=== PATIENT | male | born 1990 | race African-American/Black ===

== ENCOUNTER 2017-02-07 20:46 | Emergency (ER) | payer SELFPAY ==
[~2017-02-07] VITALS: Ht 190.5 cm; Wt 81.6 kg
[2017-02-07 21:17] VITALS: BP 139/60
--- NOTE | 2017-02-07 21:48 | PHYS DOC ---
Past Medical History Past Medical History: No Pertinent History Past Surgical History: No Surgical History Alcohol Use: Occasionally Drug Use: Marijuana Adult General Chief Complaint Chief Complaint: INSECT BITE HPI HPI Patient is a 26 year old male who presents with insect bite to the left hip that he noted three days ago. He states he had one on the right hip that he poked yesterday. Patient denies any fever. He is writhing in pain moving up and down in the chair. Review of Systems Review of Systems Constitutional: Denies fever or chills [] Musculoskeletal: Denies back pain or joint pain [] Integument: insect bite to the left hip and right hip Neurologic: Denies headache, focal weakness or sensory changes [] Current Medications Current Medications Current Medications Medications (Trade) Dose Ordered Sig/Debra Start Time Stop Time Status Last Admin Dose Admin Acetaminophen/ Hydrocodone Bitart (Lortab 5/325) 1 tab 1X ONCE 02/07/17 22:00 02/07/17 22:01 DC 02/07/17 22:00 1 TAB Allergies Allergies Allergies Coded Allergies Type Severity Reaction Last Updated Verified No Known Drug Allergies 09/13/13 No Physical Exam Physical Exam Constitutional: Well developed, well nourished, no acute distress, non-toxic appearance patient is writhing in pain moving up and down in the chair Skin: Exam is difficult, patient will not let me touch the affected areas. Left hip with an area of induration approximately 2 x 2 centimeters. The area is firm , has slight erythema, very tender to touch but not fluctuant. Right hip has 2 tiny indurated area approximately 0.5 x 0.5 cm each with slight erythema firmness and tenderness to touch. Back: No tenderness, no CVA tenderness. [] Extremities: No tenderness, no cyanosis, no clubbing, ROM intact, no edema. [] Neurologic: Alert and oriented X 3, normal motor function, normal sensory function, no focal deficits noted. [] Psychologic: Affect normal, judgement normal, mood normal. [] Current Patient Data Vital Signs Vital Signs Date Time Temp Pulse Resp B/P (MAP) Pulse Ox O2 Delivery O2 Flow Rate FiO2 02/07/17 22:00 18 100 Room Air 02/07/17 21:17 98.9 94 98.9 EKG EKG [] Radiology/Procedures Radiology/Procedures [] Course & Med Decision Making Course & Med Decision Making Pertinent Labs and Imaging studies reviewed. (See chart for details) Patient has what looks like an insect bite to the left hip and right hip. Left hip looks like it's formed an early abscess. The area is very firm with no fluctuance though exam was difficult because patient would not let me touch the area. Recommended warm compresses to the area. Tetanus is up-to-date. Discharged with Bactrim and Bactroban ointment. Discharged with Ultram for pain. Follow-up with general surgeon provided in 1-2 weeks. Dragon Disclaimer Dragon Disclaimer This electronic medical record was generated, in whole or in part, using a voice recognition dictation system. Departure Departure Impression: Primary Impression: Abscess Additional Impression: Insect bite Disposition: HOME, SELF-CARE Condition: STABLE Referrals: NO PCP (PCP) MAXINE SCHULTZ MD follow up in one week Patient Instructions: Abscess, Insect Bite, [id number] Additional Instructions: You were seen with abscess of the left and right hip from what appears to be insect bites. Take the prescribed medications as ordered. Follow-up with the provided general surgeon in one to 2 weeks. Apply warm compresses to the area. Ensure you complete your oral antibiotics. Scripts Mupirocin Calcium (BACTROBAN CREAM) 15 Gm Cream..g. 1 ROSSANA TP TID, #30 GM Prov: MERLIN ALDANA APRN 02/07/17 Sulfamethoxazole/Trimethoprim (BACTRIM DS TABLET) 1 Each Tablet 1 TAB PO BID, #20 TAB Prov: MERLIN ALDANA APRN 02/07/17 Tramadol Hcl (ULTRAM) 50 Mg Tablet 1 TAB PO Q6HRS, #30 TAB Prov: MERLIN ALDANA APRN 02/07/17 Prednisone (PREDNISONE) 50 Mg Tablet 1 TAB PO DAILY, #5 TAB Prov: MERLIN ALDANA APRN 02/07/17 Problem Qualifiers Additional Impression: Insect bite Encounter type: initial encounter Qualified Codes: W57.XXXA - Bitten or stung by nonvenomous insect and other nonvenomous arthropods, initial encounter MERLIN ALDANA APRN Feb 07, 2017 21:48
[2017-02-07] MEDS ORDERED: TRAM-48 PO (21:54)
[2017-02-07] MEDS ORDERED: MUPI15CR TP (21:54)
[2017-02-07] MEDS ORDERED: SULF1TAB24 PO (21:54)
[2017-02-07] MEDS ORDERED: PRED50TA PO (21:54)
[2017-02-07] MEDS ORDERED: HYDROcodone/APAP 5/325MG 1 TAB TABLET PO ONE (22:00)
== END 2017-02-07 22:02 | disposition home or self-care (01) ==
LOC: ER 20:46
DX: L02.415 Cutaneous abscess of right lower limb (principal); L02.416 Cutaneous abscess of left lower limb; S70.262A Insect bite (nonvenomous), left hip, initial encounter; S70.261A Insect bite (nonvenomous), right hip, initial encounter; F12.10 Cannabis abuse, uncomplicated; W57.XXXA Bitten or stung by nonvenomous insect and other nonvenomous arthropods, initial encounter; Y93.89 Activity, other specified; Y92.89 Other specified places as the place of occurrence of the external cause; Y99.8 Other external cause status
CPT/HCPCS: 99283

== ENCOUNTER 2017-02-12 10:55 | Emergency (ER) | payer SELFPAY ==
[~2017-02-12] VITALS: Ht 160 cm; Wt 73.0 kg
[~2017-02-12 10:55] MED LIST: MUPI15CR TP; PRED50TA PO; SULF1TAB24 PO; TRAM-48 PO
[2017-02-12 11:05] VITALS: BP 143/78
[2017-02-12] MEDS ORDERED: LIDOCAINE 1%/EPI 1:100,000 20 ML VIAL. INJ ONE (12:00)
[2017-02-12] MEDS ORDERED: HYDR-2762 PO (14:28)
[2017-02-12] MEDS ORDERED: CLIN150C14 PO (14:28)
--- NOTE | 2017-02-12 14:28 | PHYS DOC ---
Past Medical History Past Medical History: No Pertinent History Past Surgical History: No Surgical History Alcohol Use: Occasionally Drug Use: Marijuana Adult General Chief Complaint Chief Complaint: ABSCESS HPI HPI Patient is a 26 year old male who presents with abscess on the left and right hips that he has had for the last 7 days. Patient was seen in the ED by me on February 07, 2017 but the abscesses were not ready to be drained. He was discharged with Bactrim. The abscesses are now fluctuant and very ready to drain. Patient denies any fever. Review of Systems Review of Systems Constitutional: Denies fever or chills [] Musculoskeletal: Denies back pain or joint pain [] Integument: abscess on the left and right hips Neurologic: Denies headache, focal weakness or sensory changes [] Current Medications Current Medications Current Medications Medications (Trade) Dose Ordered Sig/Debra Start Time Stop Time Status Last Admin Dose Admin Clindamycin HCl (Cleocin) 450 mg 1X ONCE 02/12/17 14:30 02/12/17 14:31 UNV Ketorolac Tromethamine (Toradol Im) 60 mg 1X ONCE 02/12/17 14:30 02/12/17 14:31 UNV Lidocaine/ Epinephrine (Xylocaine 1%-Epi 1:100,000) 20 ml 1X ONCE 02/12/17 12:00 02/12/17 12:01 DC 02/12/17 11:59 20 ML Allergies Allergies Allergies Coded Allergies Type Severity Reaction Last Updated Verified No Known Drug Allergies 09/13/13 No Physical Exam Physical Exam Constitutional: Well developed, well nourished, no acute distress, non-toxic appearance. [][] Skin: Left proximal lateral hip with an area of induration approximately 8 x 4 cm. The area is very fluctuant warm to touch and has slight erythema. Right hip with an area of induration approximately 3 x 3 cm. The area is very warm to touch fluctuant and has slight erythema. Back: No tenderness, no CVA tenderness. [] Extremities: No tenderness, no cyanosis, no clubbing, ROM intact, no edema. [] Neurologic: Alert and oriented X 3, normal motor function, normal sensory function, no focal deficits noted. [] Psychologic: Affect normal, judgement normal, mood normal. [] Current Patient Data Vital Signs Vital Signs Date Time Temp Pulse Resp B/P (MAP) Pulse Ox O2 Delivery O2 Flow Rate FiO2 9/9/17 11:05 98.6 86 16 97 Room Air 98.6 EKG EKG [] Radiology/Procedures Radiology/Procedures Indication: abscess on the left and right hips Procedure: The patient was positioned appropriately. Local anesthesia was 1% of lidocaine with epinephrine. An incision was then made over the apex of the lesions and moderate amount of yellow purulent bloody material was expressed. The drainage cavity was irrigated and packed with sterile gauze. The patients tetanus status updated as needed. The patient tolerated the procedure well. Complications: none.[] Course & Med Decision Making Course & Med Decision Making Pertinent Labs and Imaging studies reviewed. (See chart for details) Patient is back in the ED with bilateral hip abscesses and cellulitis that are ready to drained. He was seen in the ED by me on February 07, 2017 but none of his abscesses were ready to be drained. I did I&D on both abscesses today and packed them. He is to return to the ED in 2 days for wound check. I did switch him from Bactrim to clindamycin. He has no fever. He is not tachycardic. He was discharged with pain medications. His tetanus is up-to-date. Dragon Disclaimer Dragon Disclaimer This electronic medical record was generated, in whole or in part, using a voice recognition dictation system. Departure Departure Impression: Primary Impression: Cellulitis and abscess of right lower extremity Additional Impression: Cellulitis and abscess of left lower extremity Disposition: HOME, SELF-CARE Condition: STABLE Referrals: NO PCP (PCP) follow up with the Ed in 2 days for wound check Patient Instructions: Abscess, Care After, Cellulitis Additional Instructions: You were seen with abscesses with cellulitis on bilateral hips that were opened up, drained and packed in the Ed. You need to return to the ED in 2 days for wound check and packing removal. Return to the emergency room at any point you have a fever or wound condition worsens Scripts Hydrocodone Bit/Acetaminophen (HYDROCODONE-APAP 7.5-325 ) 1 Each Tablet 1 TAB PO PRN Q6HRS Y for PAIN, #30 TAB 0 Refills Prov: MERLIN ALDANA APRN 02/12/17 Clindamycin Hcl (CLINDAMYCIN HCL) 150 Mg Capsule 1 CAP PO TID, #90 CAP Prov: MERLIN ALDANA APRN 02/12/17 Problem Qualifiers MERLIN ALDANA APRN Feb 12, 2017 14:28
[2017-02-12] MEDS ORDERED: KETOROLAC 60 MG/2 ML INJ. IM ONE (14:30)
[2017-02-12] MEDS ORDERED: CLINDAMYCIN HCL 150 MG CAPSULE. PO ONE (14:30)
== END 2017-02-12 14:44 | disposition home or self-care (01) ==
LOC: ER 10:55
DX: L03.116 Cellulitis of left lower limb (principal); L03.115 Cellulitis of right lower limb
CPT/HCPCS: 10061; 96372; 99284; J1885; J3490; 10060; 99283-25

== ENCOUNTER 2017-02-14 05:32 | Emergency (ER) | payer OTHER ==
[~2017-02-14] VITALS: Ht 190.5 cm; Wt 73.0 kg
[~2017-02-14 05:32] MED LIST changes: +CLIN150C14 PO; +HYDR-2762 PO
--- NOTE | 2017-02-14 05:40 | PHYS DOC ---
Past Medical History Past Medical History: No Pertinent History Past Surgical History: No Surgical History Alcohol Use: Occasionally Drug Use: Marijuana Adult General Chief Complaint Chief Complaint: WOUND RECHECK/SUTURE REMOVAL HPI HPI Patient is a 26 year old -[place] male who presents with a wound check. He states he had these back to days ago but hasn't been taking his antibiotics as he lost the prescription. He denies fevers chills nausea vomiting. He states the wounds feel a lot of pressure. Review of Systems Review of Systems Constitutional: Denies fever or chills [] Eyes: Denies change in visual acuity, redness, or eye pain [] HENT: Denies nasal congestion or sore throat [] Respiratory: Denies cough or shortness of breath [] Cardiovascular: No additional information not addressed in HPI [] GI: Denies abdominal pain, nausea, vomiting, bloody stools or diarrhea [] : Denies dysuria or hematuria [] Musculoskeletal: Denies back pain or joint pain [] Integument: Denies rash, positive for skin lesions [] Neurologic: Denies headache, focal weakness or sensory changes [] Endocrine: Denies polyuria or polydipsia [] Current Medications Current Medications Current Medications Medications (Trade) Dose Ordered Sig/Debra Start Time Stop Time Status Last Admin Dose Admin Clindamycin HCl (Cleocin) 300 mg 1X ONCE 02/14/17 06:00 02/14/17 06:01 UNV Lidocaine/Sodium Bicarbonate (Buffered Lidocaine 1%) 20 ml 1X ONCE 02/14/17 05:45 02/14/17 05:46 DC Allergies Allergies Allergies Coded Allergies Type Severity Reaction Last Updated Verified No Known Drug Allergies 09/13/13 No Physical Exam Physical Exam Constitutional: Well developed, well nourished, no acute distress, non-toxic appearance. [] HENT: Normocephalic, atraumatic, bilateral external ears normal, oropharynx moist, no oral exudates, nose normal. [] Eyes: PERRLA, EOMI, conjunctiva normal, no discharge. [] Neck: Normal range of motion, no tenderness, supple, no stridor. [] Cardiovascular:Heart rate regular rhythm, no murmur [] Lungs & Thorax: Bilateral breath sounds clear to auscultation [] Abdomen: Bowel sounds normal, soft, no tenderness, no masses, no pulsatile masses. [] Skin: Warm, dry, erythema and bilateral hips that have been opened and packed, left hip is 4 x 2 cm with purulent discharge him a right hip 1 x 2 cm with purulent discharge was also packed Back: No tenderness, no CVA tenderness. [] Extremities: No tenderness, no cyanosis, no clubbing, ROM intact, no edema. [] Neurologic: Alert and oriented X 3, normal motor function, normal sensory function, no focal deficits noted. [] Psychologic: Affect normal, judgement normal, mood normal. [] Current Patient Data Vital Signs Vital Signs Date Time Temp Pulse Resp B/P (MAP) Pulse Ox O2 Delivery O2 Flow Rate FiO2 02/14/17 05:43 98.2 68 16 127/76 (93) 100 98.2 EKG EKG [] Radiology/Procedures Radiology/Procedures [] Impressions: Bilateral thigh abscesses Course & Med Decision Making Course & Med Decision Making Pertinent Labs and Imaging studies reviewed. (See chart for details) He lost his prescription and didn't fill it. His tetanus is up-to-date. The wounds are still firm and erythematous therefore I re-I&D the wounds. They are repacked and again was first dose of clindamycin 300 mg every 6 for 10 days. I called in the prescription to [address] so that he could not lose this prescription. He is instructed to take all medicines as directed and follow up in 2 days for wound check. Dragon Disclaimer Dragon Disclaimer This electronic medical record was generated, in whole or in part, using a voice recognition dictation system. Departure Departure Impression: Primary Impression: Abscess Disposition: 01 HOME, SELF-CARE Condition: STABLE Referrals: NO PCP (PCP) Patient Instructions: Incision and Drainage, Care After Additional Instructions: You have abscesses on both thighs that were drained 2 days ago and because you were not taking your antibiotics that you instructed to take. You must take your antibiotics or these will continue to get larger and will need to be drained again. Return to the ER in 2 more days to have these looked at to see how they are doing. If the drainage becomes a lot you might have to change her dressing. Be careful not to pull out the packing. If the car pulled out that's okay to come back in the ER in 2 days. I've cultured a prescription to [facility] at [address] You need to pick this up by noon today and continue taking her antibiotics as directed. If you develop high fevers, uncontrolled nausea vomiting, increasing pain or other concerns return back to ER sooner. Scripts Clindamycin Hcl (CLINDAMYCIN HCL) 300 Mg Capsule 300 MG PO QID for 10 Days, #40 CAP Prov: MARY ORTEGA MD 02/14/17 Incision and Drainage Indication: abscess Procedure: The patient was positioned appropriately. Local anesthesia was buffered lidocaine. An incision was already made over the apex of the lesion and dissection was performed into another pocket of fluid bilaterally, purulent material was expressed. The drainage cavity was packed with sterile gauze. The patients tetanus status updated as needed. The patient tolerated the procedure well. Complications: none. MARY ORTEGA MD Feb 14, 2017 05:40
[2017-02-14 05:43] VITALS: BP 127/76
[2017-02-14] MEDS ORDERED: LIDOCAINE 1% / SOD BICARB 8.4% 20 ML VIAL. IJ ONE (05:45)
[2017-02-14] MEDS ORDERED: CLINDAMYCIN HCL 150 MG CAPSULE. PO ONE ×2 (06:00→06:15)
[2017-02-14] MEDS ORDERED: CLIN300C8 PO (06:12)
== END 2017-02-14 06:20 | disposition home or self-care (01) ==
LOC: ER 05:32
DX: L02.416 Cutaneous abscess of left lower limb (principal); L02.415 Cutaneous abscess of right lower limb
CPT/HCPCS: 10060; 10061; 99283-25; 99284-25

== ENCOUNTER 2017-02-16 15:07 | Emergency (ER) | payer OTHER ==
[~2017-02-16] VITALS: Ht 190.5 cm; Wt 73.0 kg
[~2017-02-16 15:07] MED LIST changes: +CLIN300C8 PO
[2017-02-16 15:26] VITALS: BP 163/62
--- NOTE | 2017-02-16 16:01 | PHYS DOC ---
Past Medical History Past Medical History: No Pertinent History Past Surgical History: No Surgical History Alcohol Use: Occasionally Drug Use: Marijuana Adult General Chief Complaint Chief Complaint: WOUND RECHECK/SUTURE REMOVAL [facility] Patient is a 26 year old medical presents for wound check for an abscess to bilateral hips that was drained and repacked 2 days ago. Patient states he is taking his antibiotics. Denies any fever. Review of Systems Review of Systems Constitutional: Denies fever or chills [] Eyes: Denies change in visual acuity, redness, or eye pain [] HENT: Denies nasal congestion or sore throat [] Respiratory: Denies cough or shortness of breath [] Cardiovascular: No additional information not addressed in [facility] [] GI: Denies abdominal pain, nausea, vomiting, bloody stools or diarrhea [] : Denies dysuria or hematuria [] Musculoskeletal: Denies back pain or joint pain [] Integument: wound check for an abscess to bilateral hips Neurologic: Denies headache, focal weakness or sensory changes [] Allergies Allergies Allergies Coded Allergies Type Severity Reaction Last Updated Verified No Known Drug Allergies 09/13/13 No Physical Exam Physical Exam Constitutional: Well developed, well nourished, no acute distress, non-toxic appearance. [] Skin: Bilateral hips with 2 open abscesses packed with dressing the wounds have improved from the last time I saw patient. There is moderate drainage on the packing material with no erythema to the wounds. Back: No tenderness, no CVA tenderness. [] Extremities: No tenderness, no cyanosis, no clubbing, ROM intact, no edema. [] Neurologic: Alert and oriented X 3, normal motor function, normal sensory function, no focal deficits noted. [] Psychologic: Affect normal, judgement normal, mood normal. [] Current Patient Data Vital Signs Vital Signs Date Time Temp Pulse Resp B/P (MAP) Pulse Ox O2 Delivery O2 Flow Rate FiO2 02/16/17 15:26 98.9 81 20 95 Room Air 98.9 EKG EKG [] Radiology/Procedures Radiology/Procedures [] Course & Med Decision Making Course & Med Decision Making Pertinent Labs and Imaging studies reviewed. (See chart for details) Patient is in the ED for wound check for bilateral hip abscesses. Each of the abscess were read drained and repacked 2 days ago. There have improved tremendously, his tetanus is up-to-date and he is taking antibiotics. Packing material was removed, wounds were cleaned and repacked. Patient is to return to the ED in 2 days for wound check. Dragon Disclaimer Dragon Disclaimer This electronic medical record was generated, in whole or in part, using a voice recognition dictation system. Departure Departure Impression: Primary Impression: Wound check, abscess Disposition: HOME, SELF-CARE Condition: STABLE Referrals: NO PCP (PCP) follow up with the Ed in 2 days for wound check and packing removal Patient Instructions: Abscess, Care After Additional Instructions: Your abscesses were repacked today. Follow-up with the emergency room in 2 days for wound check. MERLIN ALDANA APRN Feb 16, 2017 16:01
== END 2017-02-16 16:10 | disposition home or self-care (01) ==
LOC: ER 15:07
DX: Z48.01 Encounter for change or removal of surgical wound dressing (principal); L02.416 Cutaneous abscess of left lower limb; L02.415 Cutaneous abscess of right lower limb
CPT/HCPCS: 99283

== ENCOUNTER 2017-02-19 12:20 | Emergency (ER) | payer OTHER ==
[~2017-02-19] VITALS: Ht 190.5 cm; Wt 73.0 kg
[2017-02-19 13:25] VITALS: BP 115/64
--- NOTE | 2017-02-19 13:47 | PHYS DOC ---
Past Medical History Past Medical History: No Pertinent History Past Surgical History: No Surgical History Alcohol Use: Occasionally Drug Use: Marijuana Adult General Chief Complaint Chief Complaint: WOUND CHECK [facility] Patient is a 26 year old male who presents with a wound to his left hip that requires repacking. The original abscess was drained 3 days prior and the patient was told to come back to have the wound evaluated and repacked. He is taking his antibiotics as directed. Review of Systems Review of Systems Constitutional: Denies fever or chills [] Respiratory: Denies cough or shortness of breath [] Cardiovascular: No additional information not addressed in HPI [] Integument: See history of present illness Neurologic: Denies headache, focal weakness or sensory changes [] Endocrine: Denies polyuria or polydipsia [] Allergies Allergies Allergies Coded Allergies Type Severity Reaction Last Updated Verified No Known Drug Allergies 09/13/13 No Physical Exam Physical Exam Constitutional: Well developed, well nourished, no acute distress, non-toxic appearance. [] Cardiovascular:Heart rate regular rhythm, no murmur [] Lungs & Thorax: Bilateral breath sounds clear to auscultation [] Skin: The abscess is well healing although pockets still exist so I did place new packing in the wound and redressed the wound Neurologic: Alert and oriented X 3, normal motor function, normal sensory function, no focal deficits noted. [] Psychologic: Affect normal, judgement normal, mood normal. [] Current Patient Data Vital Signs Vital Signs Date Time Temp Pulse Resp B/P (MAP) Pulse Ox O2 Delivery O2 Flow Rate FiO2 02/19/17 13:25 97.9 87 16 95 Room Air 97.9 EKG EKG [] Radiology/Procedures Radiology/Procedures [] Course & Med Decision Making Course & Med Decision Making Pertinent Labs and Imaging studies reviewed. (See chart for details) []1. Wound check with repacking The patient is to return for a wound check in 2 days. He is to continue to take his antibiotics as prescribed. Dragon Disclaimer Dragon Disclaimer This electronic medical record was generated, in whole or in part, using a voice recognition dictation system. Departure Departure Referrals: NO PCP (PCP) SADIE MAST APRN Feb 19, 2017 13:47
== END 2017-02-19 14:38 | disposition home or self-care (01) ==
LOC: ER 12:20
DX: Z48.01 Encounter for change or removal of surgical wound dressing (principal)
CPT/HCPCS: 99282

== ENCOUNTER 2017-02-22 18:55 | Emergency (ER) | payer OTHER ==
[~2017-02-22] VITALS: Ht 190.5 cm; Wt 73.0 kg
[2017-02-22 19:03] VITALS: BP 158/74
--- NOTE | 2017-02-22 19:23 | PHYS DOC ---
Past Medical History Past Medical History: No Pertinent History Past Surgical History: No Surgical History Additional Information: 0.25 PPD Alcohol Use: Occasionally Drug Use: Marijuana Adult General Chief Complaint Chief Complaint: WOUND CHECK [facility] HPI Patient is a 26 year old male presents to the emergency department for wound recheck. He was seen here February 12 and had an abscess drained on his left hip. On the he came back and have the packing changed in which she was represcribed an antibiotic due to the loss of the first antibiotic prescription. Patient returned on and to have the packing replaced. Patient returns today stating that he has approximately 10-12 pills of his antibiotic to take. He states he may have missed a few doses. The area appears to be a half a dollar size however appears to be healing well. It does have some slight drainage noted. No packing noted at the time when the bandage was removed the packing was noted to have, but the the dressing. Patient denies fever, chills. Review of Systems Review of Systems Constitutional: Denies fever or chills [] Eyes: Denies change in visual acuity, redness, or eye pain [] HENT: Denies nasal congestion or sore throat [] Respiratory: Denies cough or shortness of breath [] Cardiovascular: No additional information not addressed in HPI [] GI: Denies abdominal pain, nausea, vomiting, bloody stools or diarrhea [] : Denies dysuria or hematuria [] Musculoskeletal: Denies back pain or joint pain [] Integument: Denies rash or skin lesions. Patient here for wound recheck Neurologic: Denies headache, focal weakness or sensory changes [] Endocrine: Denies polyuria or polydipsia [] Allergies Allergies Allergies Coded Allergies Type Severity Reaction Last Updated Verified No Known Drug Allergies 09/13/13 No Physical Exam Physical Exam Constitutional: Well developed, well nourished, no acute distress, non-toxic appearance. [] HENT: Normocephalic, atraumatic, bilateral external ears normal, oropharynx moist, no oral exudates, nose normal. [] Eyes: PERRLA, EOMI, conjunctiva normal, no discharge. [] Neck: Normal range of motion, no tenderness, supple, no stridor. [] Cardiovascular: Patient pink warm and dry Lungs & Thorax: No respiratory distress noted Skin: Warm, dry, no erythema, no rash. Patient with a quarter size area that appears to be a wound that is healing. Edges appear to be pink patient did have some yellow drainage noted on the dressing change with packing removed at the same time with the dressing. There appeared to be slightly yellow drainage noted. Extremities: No tenderness, no cyanosis, no clubbing, ROM intact, no edema. [] Neurologic: Alert and oriented X 3, normal motor function, normal sensory function, no focal deficits noted. [] Psychologic: Affect normal, judgement normal, mood normal. [] Current Patient Data Vital Signs Vital Signs Date Time Temp Pulse Resp B/P (MAP) Pulse Ox O2 Delivery O2 Flow Rate FiO2 02/22/17 19:03 98.3 89 14 158/74 (102) 97 Room Air 98.3 EKG EKG [] Radiology/Procedures Radiology/Procedures [] Course & Med Decision Making Course & Med Decision Making Pertinent Labs and Imaging studies reviewed. (See chart for details) Patient was recommended to continue using the antibiotic prescription as prescribed. Recommended keeping the area clean and dry. Recommended following up with the primary care physician for any further evaluation as needed. Patient will be discharged home in stable condition signs symptoms to return back to emergency prior has been provided. Dressing will be applied by nursing staff. Patient agrees with discharge instructions treatment regimens and follow- up recommendations IS a concerns been answered at patient's bedside. [] Dragon Disclaimer Dragon Disclaimer This electronic medical record was generated, in whole or in part, using a voice recognition dictation system. Departure Departure Impression: Primary Impression: Wound check, abscess Disposition: HOME, SELF-CARE Condition: STABLE Referrals: NO PCP (PCP) Patient Instructions: Wound Check Additional Instructions: Continue take antibiotics as prescribed at home. Keep the area clean and dry. Continue to keep a bandage over it as long as it is draining and to prevent irritation from clothing. Follow-up with primary care physician as needed. Return back to emergency prior signs symptoms of become worse. MYRIAM LUX MACHINE GRAINER Feb 22, 2017 19:23
== END 2017-02-22 19:30 | disposition home or self-care (01) ==
LOC: ER 18:55
DX: Z48.01 Encounter for change or removal of surgical wound dressing (principal); F12.10 Cannabis abuse, uncomplicated; F17.200 Nicotine dependence, unspecified, uncomplicated
CPT/HCPCS: 99281

== ENCOUNTER 2017-06-11 15:13 | Emergency (ER) | payer OTHER ==
[2017-06-11 15:39] LABS: BILIRUBIN,URINE NEGATIVE (NEG); CLARITY,URINE CLOUDY; COLOR,URINE YELLOW; GLUCOSE,URINE NEGATIVE (NEG); NITRITE,URINE NEGATIVE (NEG); PH,URINE 7.5; PROTEIN,URINE NEGATIVE (NEG-TRACE)
[2017-06-11 15:51] LABS: BACTERIA,URINE 0 /HPF (0-FEW); RBC,URINE 0 /HPF (0-2); WBC,URINE 20-40 /HPF (0-4)
[2017-06-11] MEDS: cefTRIAXone IM 250 MG VIAL IM (16:24)
[2017-06-11] MEDS: AZITHROMYCIN 250 MG TABLET. PO (16:24)
[2017-06-11] MEDS: metroNIDAZOLE 500 MG TABLET PO (16:24)
== END 2017-06-11 16:55 | disposition home or self-care (01) ==
LOC: ER 15:13
DX: N39.0 Urinary tract infection, site not specified (principal); Z11.3 Encounter for screening for infections with a predominantly sexual mode of transmission
CPT/HCPCS: 81001; 87086; 87491; 87591; 96372; 99284-25; J0696; Q0144

== ENCOUNTER 2017-07-04 09:03 | Emergency (ER) | payer OTHER ==
[2017-07-04 09:43] LABS: INFLUENZA A PATIENT NEGATIVE (NEGATIVE); INFLUENZA B PATIENT NEGATIVE (NEGATIVE); OBC FLU VALID
[2017-07-04] MEDS: ACETAMINOPHEN 325 MG TABLET. PO ×2 (09:50)
== END 2017-07-04 09:55 | disposition home or self-care (01) ==
LOC: ER 09:03
DX: B34.9 Viral infection, unspecified (principal); F12.10 Cannabis abuse, uncomplicated
CPT/HCPCS: 87804; 87804-59; 99284

== ENCOUNTER 2017-09-12 04:52 | Emergency (ER) | payer OTHER ==
[2017-09-12] MEDS: IBUPROFEN 800 MG TABLET. PO (06:17)
[2017-09-12] MEDS: PENICILLIN V K 250 MG TABLET. PO (06:18)
== END 2017-09-12 06:20 | disposition home or self-care (01) ==
LOC: ER 04:52
DX: K02.9 Dental caries, unspecified (principal); F12.10 Cannabis abuse, uncomplicated
CPT/HCPCS: 99283

== ENCOUNTER 2017-10-18 16:36 | Emergency (ER) | payer SELFPAY, OTHER ==
[2017-10-18] MEDS: metroNIDAZOLE 500 MG TABLET PO (17:00)
[2017-10-18] MEDS: cefTRIAXone IM 250 MG VIAL IM (17:00)
[2017-10-18] MEDS: AZITHROMYCIN 250 MG TABLET. PO (17:00)
[2017-10-18 17:09] LABS: BILIRUBIN,URINE NEGATIVE (NEG); CLARITY,URINE CLOUDY; COLOR,URINE YELLOW; GLUCOSE,URINE NEGATIVE (NEG); NITRITE,URINE NEGATIVE (NEG); PH,URINE 7.5; PROTEIN,URINE NEGATIVE (NEG-TRACE); UROBILINOGEN,URINE 0.2 mg/dL (0.2 mg/dL)
[2017-10-18 17:25] LABS: RBC,URINE 0 /HPF (0-2); WBC,URINE 20-40 /HPF (0-4)
[2017-10-18 17:26] LABS: AMORPHOUS SEDIMENT,UR PRESENT /HPF; BACTERIA,URINE 0 /HPF (0-FEW)
== END 2017-10-18 17:37 | disposition home or self-care (01) ==
LOC: ER 16:36
DX: Z20.2 Contact with and (suspected) exposure to infections with a predominantly sexual mode of transmission (principal); F12.10 Cannabis abuse, uncomplicated
CPT/HCPCS: 81001; 87491; 87591; 96372; 99284; J0696; Q0144

== ENCOUNTER 2017-12-21 16:54 | Emergency (ER) | payer SELFPAY ==
[2017-12-21] MEDS: AZITHROMYCIN 250 MG TABLET. PO (19:25)
[2017-12-21] MEDS: cefTRIAXone IM 250 MG VIAL IM (19:28)
== END 2017-12-21 19:40 | disposition home or self-care (01) ==
LOC: ER 16:54
DX: Z20.2 Contact with and (suspected) exposure to infections with a predominantly sexual mode of transmission (principal)
CPT/HCPCS: 87491; 87591; 96372; 99284; J0696; Q0144

== ENCOUNTER 2018-09-08 15:04 | Emergency (ER) | payer SELFPAY ==
[~2018-09-08] VITALS: Ht 190.5 cm; Wt 77.1 kg
[~2018-09-08 15:04] MED LIST changes: +CIPR500T94 PO; -HYDR-2762 PO; +HYDR-2765 PO; +OSEL75CA PO; +PENI500T PO
[2018-09-08 15:47] VITALS: BP 128/58
[2018-09-08] MEDS ORDERED: cefTRIAXone IM 250 MG VIAL IM ONE (16:30)
[2018-09-08] MEDS ORDERED: AZITHROMYCIN 250 MG TABLET. PO ONE (16:30)
--- NOTE | 2018-09-08 16:33 | PHYS DOC ---
Past Medical History Past Medical History: No Pertinent History Past Surgical History: No Surgical History Alcohol Use: Occasionally Drug Use: Marijuana Adult General Chief Complaint Chief Complaint: SEXUALLY TRANSMITTED DISEASE HPI HPI Patient is a 28 year old male who presents to the ED for STI testing. He states that his partner had recently tested positive for chlamydia. He states that he had recently tested positive SEVERAL MONTHS AGO and taken antibiotics before getting back with his current partner. He denies any symptoms, including dysuria, itching, discharge, genital lesions. He has not medical problems. He would like to be treated without testing. He is anxious about being here. [] Review of Systems Review of Systems Constitutional: Denies fever or chills [] Eyes: Denies change in visual acuity, redness, or eye pain [] HENT: Denies nasal congestion or sore throat [] Respiratory: Denies cough or shortness of breath [] Cardiovascular: No additional information not addressed in HPI [] GI: Denies abdominal pain, nausea, vomiting, bloody stools or diarrhea [] : Denies dysuria or hematuria [] Musculoskeletal: Denies back pain or joint pain [] Integument: Denies rash or skin lesions [] Neurologic: Denies headache, focal weakness or sensory changes [] Endocrine: Denies polyuria or polydipsia [] All other systems were reviewed and found to be within normal limits, except as documented in this note. Current Medications Current Medications Current Medications Medications (Trade) Dose Ordered Sig/Debra Start Time Stop Time Status Last Admin Dose Admin Azithromycin (Zithromax) 1,000 mg 1X ONCE 09/08/18 16:30 09/08/18 16:31 DC 09/08/18 16:23 1,000 MG Ceftriaxone Sodium (Rocephin Im) 250 mg 1X ONCE 09/08/18 16:30 09/08/18 16:31 DC 09/08/18 16:23 250 MG Allergies Allergies Allergies Coded Allergies Type Severity Reaction Last Updated Verified No Known Drug Allergies 09/13/13 No Physical Exam Physical Exam Constitutional: Well developed, well nourished, no acute distress, non-toxic appearance. [] HENT: Normocephalic, atraumatic, bilateral external ears normal, oropharynx moist, no oral exudates, nose normal. [] Eyes: PERRLA, EOMI, conjunctiva normal, no discharge. [] Neck: Normal range of motion, no tenderness, supple, no stridor. [] Cardiovascular:Heart rate regular rhythm, no murmur [] Lungs & Thorax: Bilateral breath sounds clear to auscultation [] Abdomen: Bowel sounds normal, soft, no tenderness, no masses, no pulsatile masses. [] Skin: Warm, dry, no erythema, no rash. [] Back: No tenderness, no CVA tenderness. [] Extremities: No tenderness, no cyanosis, no clubbing, ROM intact, no edema. [] Neurologic: Alert and oriented X 3, normal motor function, normal sensory function, no focal deficits noted. [] Psychologic: Affect normal, judgement normal, mood normal. [] Current Patient Data Vital Signs Vital Signs Date Time Temp Pulse Resp B/P (MAP) Pulse Ox O2 Delivery O2 Flow Rate FiO2 09/08/18 15:47 98.7 83 16 128/58 (81) 99 Room Air 98.7 EKG EKG [] Radiology/Procedures Radiology/Procedures [] Course & Med Decision Making Course & Med Decision Making Pertinent Labs and Imaging studies reviewed. (See chart for details) Sexual partner tested positive for chlamydia Treated with Rocephin and Zithromax. []pt wanted just tx and not testing given known recent positive counseled on safe sex and to contact any other potential partners Dragon Disclaimer Dragon Disclaimer This electronic medical record was generated, in whole or in part, using a voice recognition dictation system. Departure Departure Impression: Primary Impression: Concern about STD in male without diagnosis Disposition: 01 HOME, SELF-CARE Condition: STABLE Referrals: NO PCP (PCP) Patient Instructions: Sexually Transmitted Disease, [id number] Additional Instructions: WE TREATED YOU PRESUMPTIVELY FOR STD. PLEASE USE PROTECTION [facility] MD Sep 08, 2018 16:33
== END 2018-09-08 16:36 | disposition home or self-care (01) ==
LOC: ER 15:04
DX: Z20.2 Contact with and (suspected) exposure to infections with a predominantly sexual mode of transmission (principal)
CPT/HCPCS: 96372; 99283; J0696; Q0144

== ENCOUNTER 2019-05-06 15:00 | Emergency (ER) | payer SELFPAY ==
[~2019-05-06] VITALS: Ht 190.5 cm; Wt 77.1 kg
[2019-05-06 15:20] VITALS: BP 130/70
--- NOTE | 2019-05-06 15:32 | PHYS DOC ---
Past Medical History Past Medical History: No Pertinent History Past Surgical History: No Surgical History Alcohol Use: Occasionally Drug Use: Marijuana Adult General Chief Complaint Chief Complaint: SEXUALLY TRANSMITTED DISEASE HPI HPI Patient is a 28 year old AA male who presents to the ER with complaints of pus like discharge from his penis for the last 2 days. Pt denies any dysuria, hematuria, increased urinary frequency, abdominal pain, back pain, or fever. Pt states he has has STDs in the past and reports that the symptoms are similar to those sx. Pt denies any pain. All other ROS is neg unless otherwise noted in HPI. Review of Systems Review of Systems See Above Allergies Allergies Allergies Coded Allergies Type Severity Reaction Last Updated Verified No Known Drug Allergies 09/13/13 No Physical Exam Physical Exam See Above Constitutional: Well developed, well nourished, no acute distress, non-toxic appearance. [] HENT: Normocephalic, atraumatic, bilateral external ears normal, nose normal. [] Eyes: PERRLA, EOMI, conjunctiva normal, no discharge. [] Neck: Normal range of motion, no stridor. [] Cardiovascular:Heart rate regular rhythm Lungs & Thorax: Respirations even and unlabored, no retractions, no respiratory distress Skin: Warm, dry, no erythema, no rash. [] Extremities: No cyanosis, ROM intact Neurologic: Alert and oriented X 3, no focal deficits noted. [] Psychologic: Affect normal, judgement normal, mood normal. [] Current Patient Data Vital Signs T: 97.6 F oral RR: 16 HR: 67 SPO2 98% room air BP 130/70 EKG EKG [] Radiology/Procedures Radiology/Procedures [] Course & Med Decision Making Course & Med Decision Making Pertinent Labs and Imaging studies reviewed. (See chart for details) dx: medical screening exam A medical screening exam was performed, patient was found to have no emergent medical condition. The patient was advised that he should follow-up with the local health department for comprehensive sexually transmitted disease testing and treatment. The plan of care would've included: Testing for gonorrhea, Chlamydia, and Trichomonas and prophylactic treatment of a suspected sexually transmitted infection with IM Rocephin and by mouth Zithromax. However, the patient eloped after talking with registration. [] [] Dragon Disclaimer Dragon Disclaimer This electronic medical record was generated, in whole or in part, using a voice recognition dictation system. Departure Departure Impression: Primary Impression: Encounter for medical screening examination Disposition: HOME, SELF-CARE (pt eloped after speaking with registration) Condition: STABLE Referrals: NO PCP (PCP) DALE CHÁVEZ APRN May 06, 2019 15:32
== END 2019-05-06 16:00 | disposition home or self-care (01) ==
LOC: ER 15:00
DX: R36.9 Urethral discharge, unspecified (principal); F12.90 Cannabis use, unspecified, uncomplicated
CPT/HCPCS: 99281